=== PATIENT | female | born 1950 | race Caucasian/White ===

== ENCOUNTER 2017-03-21 14:34 | Emergency (ER) | payer OTHER ==
[~2017-03-21] VITALS: Ht 167.6 cm; Wt 96.0 kg
[~2017-03-21 14:34] MED LIST: AMITRIPTYLINE H10 MG PO; ANTIVERT25 MG PO; ASPIR 8181 MG PO; BUSPAR15 MG PO; CALCIUM PO; CLONAZEPAM0.5 MG PO; ELAVIL10 MG PO; FLONASE16 G1 BOTH NARES; FLUOXETINE HCL10 MG PO; HYDROCHLOROTHIA25 MG PO; Halfprin PO; KLONOPIN0.5 M1 PO; LEXAPRO10 MG PO; LEXAPRO20 MG PO; LIPITOR40 MG PO; LO-DOSE ASPIRIN81 M1 PO; METFORMIN HCL500 M4 PO; PRINIVIL20 MG PO; PROAIR HFA8.5 GM IH; TENORMIN50 MG PO; TRICOR48 MG PO; VISTARIL25 MG PO; ZYRTEC10 M2 PO
[2017-03-21 16:03] LABS: CARBON DIOXIDE (BICARBONATE) 30.5 MEQ/L (20-31)
[2017-03-21 16:04] LABS: HEMATOCRIT 41.5 % (36.0-46.0); MCH 29.5 PG (29.0-34.0); MCHC 31.8 G/DL (30.0-36.0); MCV 92.8 FL (83-99); MEAN PLAT.VOLUME 10.8 uM^3 (9.5-12.4); PLATELET COUNT 244 K/uL (156-360); RBC DIS.WIDTH-CV 14.8 % (11.8-14.6); RBC DIS.WIDTH-SD 50.6 % (39-53); RED BLOOD COUNT 4.47 M/uL (3.80-5.20); WHITE BLOOD COUNT 6.3 K/uL (4.1-10.2)
[2017-03-21 16:21] LABS: CHLORIDE 104 mEq/L (99-109); POTASSIUM 3.7 mEq/L (3.7-5.4); SODIUM 141 mEq/L (136-147)
[2017-03-21 16:23] LABS: GLUCOSE 113 mg/dL (70-99)
[2017-03-21 16:24] LABS: ANION GAP 13 MEQ/L (2-14)
[2017-03-21 16:26] LABS: TROP-I INTERPRETATION NEGATIVE; TROPONIN-I < 0.01 ng/mL (0.0-0.30)
[2017-03-21 16:27] LABS: GFR ESTIMATE (CALCULATED) 53 mL/min/
[2017-03-21 16:28] LABS: UREA NITROGEN (BUN) 19 mg/dL (9-23)
[2017-03-21 16:51] LABS: ADD MIUA? YES; BILIRUBIN NEGATIVE; BLOOD NEGATIVE; COLOR YELLOW ((YELLOW)); GLUCOSE (STRIP) NEGATIVE; KETONES NEGATIVE; LEUKOCYTES NEGATIVE; NITRITE POSITIVE; PROTEIN (STRIP) NEGATIVE; SPECIFIC GRAVITY 1.016 (1.000-1.030); UROBILINOGEN 0.2 MG/DL (0.2-1.0)
[2017-03-21 16:57] LABS: BACTERIA RARE /HPF; EPITHELIAL CELLS RARE /HPF; MUCUS TRACE /LPF; RED BLOOD CELLS 0-5 /HPF (0-5); UCUL ADDED? NO
[2017-03-21] MEDS ORDERED: PROVENTIL HFA6.7 GM IH (16:58)
[2017-03-21] MEDS ORDERED: PREDNISONE20 MG PO (16:58)
[2017-03-21 17:12] VITALS: BP 111/77
[2017-03-21 17:22] LABS: AMPHETAMINE NEGATIVE (500 ng/mL); BARBITURATES NEGATIVE (200 ng/mL); BENZODIAZEPINES NEGATIVE (150 ng/mL); COCAINE NEGATIVE (150 ng/mL); INTERNAL CONTROLS VALID? YES; METHADONE NEGATIVE (200 ng/mL); METHAMPHETAMINE NEGATIVE (500 ng/mL); OPIATES (MORPHINE) NEGATIVE (100 ng/mL); OXYCODONE NEGATIVE (100 ng/mL); PHENCYCLIDINE NEGATIVE (25 ng/mL); PROPOXYPHENE NEGATIVE (300 ng/mL); THC CANNABINOIDS NEGATIVE (50 ng/mL); TRICYCLIC ANTIDEPRESSANTS NEGATIVE (300 ng/mL)
== END 2017-03-21 17:21 | disposition home or self-care (01) ==
LOC: EME 14:34
PROVIDERS: Emergency Medicine
DX: J20.9 Acute bronchitis, unspecified (principal); N39.0 Urinary tract infection, site not specified; F17.200 Nicotine dependence, unspecified, uncomplicated; E78.5 Hyperlipidemia, unspecified; I10 Essential (primary) hypertension; Z88.6 Allergy status to analgesic agent; Z88.0 Allergy status to penicillin
CPT/HCPCS: 71020; 80048; 81003; 82803; 83605; 83880; 84484; 85027; 87040; 87077; 87086; 87186; 93005; 94640; 99281; 99285; J7512

== ENCOUNTER 2018-03-19 23:02 | Emergency (ER) | payer OTHER ==
[~2018-03-19] VITALS: Ht 170.2 cm; Wt 91.9 kg
[~2018-03-19 23:02] MED LIST changes: +PREDNISONE20 MG PO; +PROVENTIL HFA6.7 GM IH
[2018-03-20] MEDS ORDERED: ACULAR 0.5100 DROP/5 LEFT EYE (02:13)
[2018-03-20 02:50] VITALS: BP 137/73
== END 2018-03-20 02:56 | disposition home or self-care (01) ==
LOC: EME 23:02
DX: H57.12 Ocular pain, left eye (principal); E11.9 Type 2 diabetes mellitus without complications; I10 Essential (primary) hypertension; E78.5 Hyperlipidemia, unspecified; F32.9 Major depressive disorder, single episode, unspecified; F41.9 Anxiety disorder, unspecified; Z86.73 Personal history of transient ischemic attack (TIA), and cerebral infarction without residual deficits; F17.200 Nicotine dependence, unspecified, uncomplicated; Z79.84 Long term (current) use of oral hypoglycemic drugs; Z79.82 Long term (current) use of aspirin; Z88.5 Allergy status to narcotic agent; Z88.0 Allergy status to penicillin
CPT/HCPCS: 99281; 99285